=== PATIENT | male | born 1945 | race African-American/Black ===

== ENCOUNTER 2020-12-05 19:16 | Inpatient (IN) | payer MEDICARE, MEDICAID ==
[~2020-12-05] VITALS: Ht 177.8 cm; Wt 75.3 kg
[2020-12-05 20:43] LABS: BASOPHILS % 0.5 % (0.0-2.0); EOSINOPHILS % 4.6 % (0.0-5.0); HEMATOCRIT. 43.3 % (42.0-52.0); HEMOGLOBIN. 14.6 g/dL (14.0-18.0); LYMPHOCYTES % 19.2 % (20.0-50.0); MEAN CORPUSCULAR HEMOGLOBIN 33.1 pg (28.0-32.0); MEAN CORPUSCULAR VOLUME 98.2 fL (80.0-94.0); MEAN PLATELET VOLUME 9.6 fl (7.4-10.4); MONOCYTES % 13.4 % (2.0-8.0); NEUTROPHILS % 62.3 % (40.0-76.0); PLATELET 95 x1000/uL (130-400); RED BLOOD CELL COUNT 4.41 mill/uL (4.7-6.1); RED CELL DISTRIBUTION WIDTH 16.2 % (11.6-14.6)
[2020-12-05 20:49] LABS: CHLORIDE 101 mEq/L (98-107)
[2020-12-05] MEDS ORDERED: FUROSEMIDE 40MG/4ML VIAL IVP ONE (21:45)
[2020-12-05] MEDS ORDERED: ONDANSETRON HCL 4MG/2ML INJ IV PRN (23:30)
[2020-12-06] VITALS (7 sets, daily range): BP systolic 121–142; BP diastolic 68–78
[2020-12-06 00:42] LABS: HEPATITIS B SURFACE ANTIGEN NEGATIVE
[2020-12-06] MEDS: FUROSEMIDE 40MG/4ML VIAL IVP SCH ×3 (01:01→16:51)
[2020-12-06 01:12] LABS: HEPATITIS A AB IGM NEGATIVE (NEGATIVE)
[2020-12-06] MEDS: ACETAMINOPHEN 325MG TABLET PO PRN (02:16)
[2020-12-06 02:27] LABS: *AMPHETAMINES SCREEN URINE NEGATIVE (NEGATIVE); *BARBITURATES SCREEN URINE NEGATIVE (NEGATIVE); *BENZODIAZEPINES SCREEN URINE NEGATIVE (NEGATIVE); *COCAINE SCREEN URINE NEGATIVE (NEGATIVE); CANNABINOID URINE SCREEN NEGATIVE (NEGATIVE); PHENCYCLIDINE URINE SCREEN NEGATIVE (NEGATIVE)
[2020-12-06 02:28] LABS: METHADONE URINE SCREEN NEGATIVE (NEGATIVE); OPIATES URINE SCREEN NEGATIVE (NEGATIVE)
[2020-12-06] MEDS: HYDROCODONE/ACETAMINOPHEN 10/325MG TABLET PO PRN ×3 (06:50→23:59)
[2020-12-06] MEDS ORDERED: PERMETHRIN 5% CREAM 60GM TOP NR (12:45)
[2020-12-06] MEDS ORDERED: PIPERONYL/PYRETHRINS (RID)120 ML SHAMPOO TOP NR ×2 (21:00)
[2020-12-06] MEDS: LEVETIRACETAM 500MG TABLET PO SCH (21:42)
[2020-12-07] VITALS (12 sets, daily range): BP systolic 105–139; BP diastolic 60–101
[2020-12-07] MEDS: LEVETIRACETAM 500MG TABLET PO SCH ×2 (09:02→20:32)
[2020-12-07] MEDS: HYDROCODONE/ACETAMINOPHEN 10/325MG TABLET PO PRN (09:03)
[2020-12-07] MEDS: FUROSEMIDE 40MG/4ML VIAL IVP SCH ×2 (09:24→17:14)
[2020-12-07 10:09] LABS: BASOPHILS % 0.4 % (0.0-2.0); EOSINOPHILS % 3.1 % (0.0-5.0); HEMATOCRIT. 39.4 % (42.0-52.0); HEMOGLOBIN. 13.3 g/dL (14.0-18.0); LYMPHOCYTES % 14.7 % (20.0-50.0); MEAN CORPUSCULAR HEMOGLOBIN 32.7 pg (28.0-32.0); MEAN CORPUSCULAR VOLUME 96.6 fL (80.0-94.0); MEAN PLATELET VOLUME 9.4 fl (7.4-10.4); MONOCYTES % 12.1 % (2.0-8.0); NEUTROPHILS % 69.7 % (40.0-76.0); PLATELET 60 x1000/uL (130-400); RED BLOOD CELL COUNT 4.08 mill/uL (4.7-6.1); RED CELL DISTRIBUTION WIDTH 15.7 % (11.6-14.6)
[2020-12-07 10:26] LABS: CHLORIDE 96 mEq/L (98-107)
[2020-12-07] MEDS ORDERED: POTASSIUM CHLORIDE 20MEQ TABLET SR PO NR (10:45)
[2020-12-07] MEDS ORDERED: PIPERONYL/PYRETHRINS (RID)120 ML SHAMPOO TOP NR (12:00)
[2020-12-07] MEDS ORDERED: POTASSIUM CHLORIDE INJ 40 MEQ in DEXT 5% WATER 250 ML IV NR (13:00)
[2020-12-07] MEDS ORDERED: MAGNESIUM 2 G PREMIX 50 ML IV NR ×2 (16:00→18:00)
[2020-12-07] MEDS: ASPIRIN 81MG EC TABLET PO SCH (17:14)
[2020-12-08] VITALS (13 sets, daily range): BP systolic 91–149; BP diastolic 45–85
[2020-12-08] MEDS: HYDROCODONE/ACETAMINOPHEN 10/325MG TABLET PO PRN ×2 (05:56→17:30)
[2020-12-08 07:04] LABS: EOSINOPHILS % 4.4 % (0.0-5.0); HEMATOCRIT. 39.1 % (42.0-52.0); HEMOGLOBIN. 13.5 g/dL (14.0-18.0); LYMPHOCYTES % 19.3 % (20.0-50.0); MEAN CORPUSCULAR HEMOGLOBIN 33.5 pg (28.0-32.0); MEAN CORPUSCULAR VOLUME 96.8 fL (80.0-94.0); MEAN PLATELET VOLUME 10.2 fl (7.4-10.4); NEUTROPHILS % 61.3 % (40.0-76.0); PLATELET 57 x1000/uL (130-400); RED BLOOD CELL COUNT 4.04 mill/uL (4.7-6.1); RED CELL DISTRIBUTION WIDTH 15.7 % (11.6-14.6)
[2020-12-08 07:37] LABS: CHLORIDE 96 mEq/L (98-107)
[2020-12-08] MEDS: POTASSIUM CHLORIDE 20MEQ TABLET SR PO SCH (08:06)
[2020-12-08] MEDS: FUROSEMIDE 40MG/4ML VIAL IVP SCH ×2 (08:06→17:21)
[2020-12-08] MEDS: ASPIRIN 81MG EC TABLET PO SCH (08:06)
[2020-12-08] MEDS: LEVETIRACETAM 500MG TABLET PO SCH ×2 (08:06→20:31)
[2020-12-08] MEDS ORDERED: ENOXAPARIN 40MG/0.4ML SYR SUBCUT SCH (09:00)
[2020-12-08] MEDS ORDERED: POTASSIUM CHLORIDE 20MEQ/PACKET PO NR ×2 (09:30→15:00)
[2020-12-08] MEDS ORDERED: MAGNESIUM 2 G PREMIX 50 ML IV NR (10:30)
[2020-12-09 01:59] VITALS: BP 103/74
[2020-12-09 04:00] VITALS: BP 125/82
[2020-12-09 05:59] VITALS: BP 92/55
[2020-12-09 08:01] VITALS: BP 136/89
[2020-12-09 08:37] LABS: BASOPHILS % 0.8 % (0.0-2.0); EOSINOPHILS % 5.3 % (0.0-5.0); HEMATOCRIT. 42.4 % (42.0-52.0); HEMOGLOBIN. 14.5 g/dL (14.0-18.0); LYMPHOCYTES % 16.2 % (20.0-50.0); MEAN CORPUSCULAR HEMOGLOBIN 33.3 pg (28.0-32.0); MEAN CORPUSCULAR VOLUME 97.7 fL (80.0-94.0); MEAN PLATELET VOLUME 10.7 fl (7.4-10.4); MONOCYTES % 12.8 % (2.0-8.0); NEUTROPHILS % 64.9 % (40.0-76.0); PLATELET 66 x1000/uL (130-400); RED BLOOD CELL COUNT 4.34 mill/uL (4.7-6.1); RED CELL DISTRIBUTION WIDTH 16.3 % (11.6-14.6)
[2020-12-09 08:59] LABS: CHLORIDE 99 mEq/L (98-107)
[2020-12-09] MEDS: FUROSEMIDE 40MG/4ML VIAL IVP SCH ×2 (09:29→16:24)
[2020-12-09] MEDS: LEVETIRACETAM 500MG TABLET PO SCH ×2 (09:30→20:35)
[2020-12-09] MEDS: HYDROCODONE/ACETAMINOPHEN 10/325MG TABLET PO PRN (09:32)
[2020-12-09] MEDS: POTASSIUM CHLORIDE 20MEQ TABLET SR PO SCH (09:35)
[2020-12-09] MEDS ORDERED: IOHEXOL-350 100 ML BOTTLE ONE (09:41)
[2020-12-09 10:45] VITALS: BP 110/70
[2020-12-09 20:00] VITALS: BP 108/69
[2020-12-09] MEDS: AMLODIPINE 5MG TABLET PO SCH (20:35)
[2020-12-10] VITALS (15 sets, daily range): BP systolic 78–147; BP diastolic 23–78
[2020-12-10] MEDS: POTASSIUM CHLORIDE 20MEQ TABLET SR PO SCH ×2 (08:17→17:23)
[2020-12-10] MEDS: FUROSEMIDE 40MG/4ML VIAL IVP SCH ×2 (08:18→17:23)
[2020-12-10] MEDS: LEVETIRACETAM 500MG TABLET PO SCH ×2 (08:18→20:40)
[2020-12-10] MEDS: AMLODIPINE 5MG TABLET PO SCH ×2 (08:18→21:00)
[2020-12-10 08:28] LABS: HEMATOCRIT. 41.8 % (42.0-52.0); HEMOGLOBIN. 14.3 g/dL (14.0-18.0); MEAN CORPUSCULAR HEMOGLOBIN 33.5 pg (28.0-32.0); MEAN CORPUSCULAR VOLUME 97.7 fL (80.0-94.0); MEAN PLATELET VOLUME 10.4 fl (7.4-10.4); PLATELET 75 x1000/uL (130-400); RED BLOOD CELL COUNT 4.28 mill/uL (4.7-6.1); RED CELL DISTRIBUTION WIDTH 16.2 % (11.6-14.6)
[2020-12-10 08:33] LABS: CHLORIDE 98 mEq/L (98-107)
[2020-12-10 14:17] LABS: PLATELET ESTIMATE DECREASED
[2020-12-10] MEDS: HYDROCODONE/ACETAMINOPHEN 10/325MG TABLET PO PRN (17:46)
[2020-12-10] MEDS: ACETAMINOPHEN 325MG TABLET PO PRN (20:41)
[2020-12-11] VITALS (9 sets, daily range): BP systolic 94–122; BP diastolic 48–99
[2020-12-11 06:55] LABS: HEMATOCRIT. 43.6 % (42.0-52.0); HEMOGLOBIN. 14.9 g/dL (14.0-18.0); MEAN CORPUSCULAR HEMOGLOBIN 33.5 pg (28.0-32.0); MEAN CORPUSCULAR VOLUME 98.2 fL (80.0-94.0); MEAN PLATELET VOLUME 9.8 fl (7.4-10.4); PLATELET 84 x1000/uL (130-400); RED BLOOD CELL COUNT 4.43 mill/uL (4.7-6.1); RED CELL DISTRIBUTION WIDTH 16.1 % (11.6-14.6)
[2020-12-11 08:25] LABS: CHLORIDE 101 mEq/L (98-107)
[2020-12-11] MEDS: FUROSEMIDE 40MG/4ML VIAL IVP SCH ×2 (08:41→17:20)
[2020-12-11] MEDS: POTASSIUM CHLORIDE 20MEQ TABLET SR PO SCH ×2 (08:41→17:20)
[2020-12-11] MEDS: AMLODIPINE 5MG TABLET PO SCH ×2 (08:42→20:29)
[2020-12-11] MEDS: LEVETIRACETAM 500MG TABLET PO SCH ×2 (08:42→20:28)
[2020-12-11] MEDS ORDERED: POTASSIUM CHLORIDE 20MEQ TABLET SR PO SCH (08:45)
[2020-12-11 18:47] LABS: PLATELET ESTIMATE DECREASED
[2020-12-11] MEDS ORDERED: PERMETHRIN 5% CREAM 60GM TOP NR (20:00)
[2020-12-12] VITALS (13 sets, daily range): BP systolic 100–129; BP diastolic 64–79
[2020-12-12 06:11] LABS: HEMATOCRIT. 43.2 % (42.0-52.0); HEMOGLOBIN. 14.7 g/dL (14.0-18.0); MEAN CORPUSCULAR HEMOGLOBIN 33.5 pg (28.0-32.0); MEAN CORPUSCULAR VOLUME 98.2 fL (80.0-94.0); MEAN PLATELET VOLUME 10.6 fl (7.4-10.4); PLATELET 98 x1000/uL (130-400); RED CELL DISTRIBUTION WIDTH 16.2 % (11.6-14.6)
[2020-12-12 07:15] LABS: CHLORIDE 104 mEq/L (98-107)
[2020-12-12] MEDS: FUROSEMIDE 40MG/4ML VIAL IVP SCH ×2 (09:00→09:23)
[2020-12-12] MEDS: LEVETIRACETAM 500MG TABLET PO SCH ×2 (09:22→20:05)
[2020-12-12] MEDS: POTASSIUM CHLORIDE 20MEQ TABLET SR PO SCH ×2 (09:23→18:06)
[2020-12-12] MEDS: AMLODIPINE 5MG TABLET PO SCH ×2 (09:23→22:48)
[2020-12-12 12:15] LABS: PLATELET ESTIMATE SLIGHTLY DECREASED
[2020-12-12] MEDS: FUROSEMIDE 40MG TABLET PO SCH (20:05)
[2020-12-13] VITALS (7 sets, daily range): BP systolic 61–124; BP diastolic 38–79
[2020-12-13] MEDS: FUROSEMIDE 40MG TABLET PO SCH ×2 (08:19→21:32)
[2020-12-13] MEDS: AMLODIPINE 5MG TABLET PO SCH ×2 (08:19→21:00)
[2020-12-13] MEDS: LEVETIRACETAM 500MG TABLET PO SCH ×2 (08:19→21:32)
[2020-12-13] MEDS: POTASSIUM CHLORIDE 20MEQ TABLET SR PO SCH ×2 (08:19→17:15)
[2020-12-14] VITALS: BP 97/63
[2020-12-14 04:00] VITALS: BP 109/64
[2020-12-14 08:00] VITALS: BP 107/71
[2020-12-14] MEDS: AMLODIPINE 5MG TABLET PO SCH ×2 (09:00→10:51)
[2020-12-14] MEDS: FUROSEMIDE 40MG TABLET PO SCH ×2 (09:00→21:00)
[2020-12-14] MEDS: POTASSIUM CHLORIDE 20MEQ TABLET SR PO SCH ×2 (09:00→18:25)
[2020-12-14] MEDS: LEVETIRACETAM 500MG TABLET PO SCH ×2 (09:00→21:14)
[2020-12-14 12:00] VITALS: BP 105/62
[2020-12-14 15:44] LABS: HEMATOCRIT. 41.3 % (42.0-52.0); HEMOGLOBIN. 13.9 g/dL (14.0-18.0); MEAN CORPUSCULAR HEMOGLOBIN 33.4 pg (28.0-32.0); MEAN CORPUSCULAR VOLUME 99.6 fL (80.0-94.0); MEAN PLATELET VOLUME 10.7 fl (7.4-10.4); PLATELET 141 x1000/uL (130-400); RED BLOOD CELL COUNT 4.15 mill/uL (4.7-6.1)
[2020-12-14 16:00] VITALS: BP 107/63
[2020-12-14 16:02] LABS: CHLORIDE 107 mEq/L (98-107)
[2020-12-14] MEDS: ACETAMINOPHEN 325MG TABLET PO PRN (16:05)
[2020-12-14 20:00] VITALS: BP 93/64
[2020-12-14 23:09] LABS: PLATELET ESTIMATE NORMAL
[2020-12-15] VITALS: BP 110/72
[2020-12-15 04:00] VITALS: BP 111/67
[2020-12-15 08:00] VITALS: BP 118/78
[2020-12-15] MEDS: LEVETIRACETAM 500MG TABLET PO SCH ×2 (09:33→22:24)
[2020-12-15] MEDS: ACETAMINOPHEN 325MG TABLET PO PRN (09:34)
[2020-12-15] MEDS: AMLODIPINE 5MG TABLET PO SCH ×2 (09:34→21:00)
[2020-12-15] MEDS: POTASSIUM CHLORIDE 20MEQ TABLET SR PO SCH ×2 (09:37→16:42)
[2020-12-15] MEDS: FUROSEMIDE 40MG TABLET PO SCH ×2 (09:37→22:24)
[2020-12-15 12:00] VITALS: BP 122/74
[2020-12-15 16:00] VITALS: BP 88/64
[2020-12-15 20:00] VITALS: BP 115/74
[2020-12-16] VITALS: BP 110/63
[2020-12-16 04:00] VITALS: BP 112/65
[2020-12-16 08:00] VITALS: BP 120/74
[2020-12-16] MEDS: POTASSIUM CHLORIDE 20MEQ TABLET SR PO SCH ×3 (09:00→16:48)
[2020-12-16] MEDS: FUROSEMIDE 40MG TABLET PO SCH ×3 (09:00→23:10)
[2020-12-16] MEDS: LEVETIRACETAM 500MG TABLET PO SCH ×2 (10:32→23:10)
[2020-12-16] MEDS: AMLODIPINE 5MG TABLET PO SCH ×2 (10:32→23:10)
[2020-12-16 12:00] VITALS: BP 118/70
[2020-12-16 16:00] VITALS: BP 106/70
[2020-12-16 20:00] VITALS: BP 114/72
[2020-12-16] MEDS: ACETAMINOPHEN 325MG TABLET PO PRN (23:10)
[2020-12-17] VITALS: BP 112/70
[2020-12-17 04:00] VITALS: BP 128/67
[2020-12-17 08:00] VITALS: BP 111/65
[2020-12-17] MEDS: LEVETIRACETAM 500MG TABLET PO SCH ×2 (08:56→20:26)
[2020-12-17] MEDS: POTASSIUM CHLORIDE 20MEQ TABLET SR PO SCH ×2 (08:57→17:42)
[2020-12-17] MEDS: FUROSEMIDE 40MG TABLET PO SCH ×3 (08:57→20:36)
[2020-12-17] MEDS: AMLODIPINE 5MG TABLET PO SCH ×2 (09:02→20:27)
[2020-12-17] MEDS: ACETAMINOPHEN 325MG TABLET PO PRN ×2 (09:34→17:42)
[2020-12-17 12:00] VITALS: BP 93/61
[2020-12-17 16:00] VITALS: BP 106/63
[2020-12-17 20:00] VITALS: BP 96/53
[2020-12-18] VITALS: BP 102/64
[2020-12-18 04:00] VITALS: BP 111/70
[2020-12-18 08:00] VITALS: BP 104/74
[2020-12-18] MEDS: LEVETIRACETAM 500MG TABLET PO SCH ×2 (08:47→21:24)
[2020-12-18] MEDS: FUROSEMIDE 40MG TABLET PO SCH ×2 (08:47→21:24)
[2020-12-18] MEDS: POTASSIUM CHLORIDE 20MEQ TABLET SR PO SCH ×2 (08:47→16:40)
[2020-12-18] MEDS: AMLODIPINE 5MG TABLET PO SCH ×3 (08:48→21:24)
[2020-12-18 16:00] VITALS: BP 109/72
[2020-12-18] MEDS: ACETAMINOPHEN 325MG TABLET PO PRN (16:41)
[2020-12-18 20:00] VITALS: BP 104/62
[2020-12-19] VITALS: BP 104/71
[2020-12-19 04:00] VITALS: BP 125/78
[2020-12-19] MEDS: ACETAMINOPHEN 325MG TABLET PO PRN ×3 (05:32→21:36)
[2020-12-19 08:00] VITALS: BP 130/73
[2020-12-19] MEDS: FUROSEMIDE 40MG TABLET PO SCH ×3 (09:00→21:00)
[2020-12-19] MEDS: AMLODIPINE 5MG TABLET PO SCH ×3 (09:00→21:00)
[2020-12-19] MEDS: LEVETIRACETAM 500MG TABLET PO SCH ×3 (09:00→21:36)
[2020-12-19] MEDS: POTASSIUM CHLORIDE 20MEQ TABLET SR PO SCH ×3 (09:00→17:03)
[2020-12-19 12:00] VITALS: BP 110/68
[2020-12-19 16:00] VITALS: BP 101/61
[2020-12-19 20:00] VITALS: BP 105/66
[2020-12-20] VITALS: BP 161/94
[2020-12-20] MEDS ORDERED: CLONIDINE 0.1MG TABLET PO PRN (01:00)
[2020-12-20 04:00] VITALS: BP 98/55
[2020-12-20 08:00] VITALS: BP 136/83
[2020-12-20] MEDS: POTASSIUM CHLORIDE 20MEQ TABLET SR PO SCH ×2 (09:00→17:00)
[2020-12-20] MEDS: LEVETIRACETAM 500MG TABLET PO SCH ×2 (09:00→21:18)
[2020-12-20] MEDS: FUROSEMIDE 40MG TABLET PO SCH ×2 (09:00→21:18)
[2020-12-20] MEDS: AMLODIPINE 5MG TABLET PO SCH ×2 (09:00→21:17)
[2020-12-20 12:00] VITALS: BP 85/57
[2020-12-20] MEDS: ACETAMINOPHEN 325MG TABLET PO PRN ×2 (12:03→21:18)
[2020-12-20 16:00] VITALS: BP 103/61
[2020-12-20 20:00] VITALS: BP 121/66
[2020-12-21] VITALS (7 sets, daily range): BP systolic 107–129; BP diastolic 63–74
[2020-12-21] MEDS: FUROSEMIDE 40MG TABLET PO SCH ×2 (09:00→20:05)
[2020-12-21] MEDS: AMLODIPINE 5MG TABLET PO SCH ×2 (09:00→20:05)
[2020-12-21] MEDS: LEVETIRACETAM 500MG TABLET PO SCH ×2 (09:00→20:04)
[2020-12-21] MEDS: ACETAMINOPHEN 325MG TABLET PO PRN ×2 (10:21→20:05)
[2020-12-21] MEDS ORDERED: FURO40TA5 PO (11:40)
[2020-12-21] MEDS ORDERED: KEPP500 PO (11:40)
[2020-12-21] MEDS ORDERED: AMLO5TAB88 PO (11:40)
[2020-12-21 13:50] LABS: CHLORIDE 108 mEq/L (98-107)
[2020-12-21] MEDS ORDERED: POTA20TA82 MT (18:39)
[2020-12-21] MEDS ORDERED: HYDROCODONE/ACETAMINOPHEN 5/325MG TABLET PO PRN (20:00)
[2020-12-22] VITALS: BP 131/79
[2020-12-22 04:00] VITALS: BP 122/73
[2020-12-22] MEDS: ACETAMINOPHEN 325MG TABLET PO PRN ×2 (05:38→10:29)
[2020-12-22] MEDS: FUROSEMIDE 40MG TABLET PO SCH (10:29)
[2020-12-22] MEDS: AMLODIPINE 5MG TABLET PO SCH (10:29)
[2020-12-22] MEDS: LEVETIRACETAM 500MG TABLET PO SCH (10:29)
[2020-12-22 13:28] VITALS: BP 124/86
[2020-12-22 15:27] VITALS: BP 124/86
== END 2020-12-22 16:00 | disposition home or self-care (01) | DRG 194 ==
LOC: ER 19:16 → 3WST 22:24 → EDBD 22:24 → ENRESERV 12-06 07:33 → 6EST 12-06 07:51
PROVIDERS: ADMIT Internal Medicine; ATTEND Internal Medicine
PROC: 0HBRXZZ Excision of Toe Nail, External Approach (ICD-10-PCS; principal; 2020-12-07)
PROC: 0HBRXZZ Excision of Toe Nail, External Approach (ICD-10-PCS; 2020-12-07)
PROC: 0HBRXZZ Excision of Toe Nail, External Approach (ICD-10-PCS; 2020-12-07)
PROC: 0HBRXZZ Excision of Toe Nail, External Approach (ICD-10-PCS; 2020-12-07)
PROC: 0HBRXZZ Excision of Toe Nail, External Approach (ICD-10-PCS; 2020-12-07)
PROC: 0HBRXZZ Excision of Toe Nail, External Approach (ICD-10-PCS; 2020-12-07)
PROC: 0HBRXZZ Excision of Toe Nail, External Approach (ICD-10-PCS; 2020-12-07)
PROC: 0HBRXZZ Excision of Toe Nail, External Approach (ICD-10-PCS; 2020-12-07)
PROC: 0HBRXZZ Excision of Toe Nail, External Approach (ICD-10-PCS; 2020-12-07)
PROC: 0HBRXZZ Excision of Toe Nail, External Approach (ICD-10-PCS; 2020-12-07)
DX: I11.0 Hypertensive heart disease with heart failure (principal); I50.33 Acute on chronic diastolic (congestive) heart failure; E44.0 Moderate protein-calorie malnutrition; B19.20 Unspecified viral hepatitis C without hepatic coma; B85.2 Pediculosis, unspecified; E78.5 Hyperlipidemia, unspecified; E83.51 Hypocalcemia; G40.909 Epilepsy, unspecified, not intractable, without status epilepticus; I25.10 Atherosclerotic heart disease of native coronary artery without angina pectoris; J44.9 Chronic obstructive pulmonary disease, unspecified; K76.0 Fatty (change of) liver, not elsewhere classified; B35.1 Tinea unguium; E83.42 Hypomagnesemia; E87.6 Hypokalemia; I74.10 Embolism and thrombosis of unspecified parts of aorta; D69.6 Thrombocytopenia, unspecified; I72.2 Aneurysm of renal artery; Z60.2 Problems related to living alone; I87.8 Other specified disorders of veins; S90.422A Blister (nonthermal), left great toe, initial encounter; X58.XXXA Exposure to other specified factors, initial encounter; S90.31XA Contusion of right foot, initial encounter; E11.51 Type 2 diabetes mellitus with diabetic peripheral angiopathy without gangrene; L60.2 Onychogryphosis; I71.4 Abdominal aortic aneurysm, without rupture; I49.3 Ventricular premature depolarization; R00.0 Tachycardia, unspecified; I95.9 Hypotension, unspecified; Z20.822 Contact with and (suspected) exposure to COVID-19; I49.1 Atrial premature depolarization; Z95.1 Presence of aortocoronary bypass graft; Z86.718 Personal history of other venous thrombosis and embolism; Z86.11 Personal history of tuberculosis; Z79.01 Long term (current) use of anticoagulants; Z59.0 Homelessness; Y93.89 Activity, other specified; Y92.89 Other specified places as the place of occurrence of the external cause; Y99.8 Other external cause status; Z71.6 Tobacco abuse counseling; Z68.23 Body mass index [BMI] 23.0-23.9, adult
CPT/HCPCS: 36415; 71045; 75635; 76700; 80048; 80053; 80061; 80305; 83036; 83735; 83880; 84443; 84484; 85025; 86705; 86709; 86803; 87340; 93005; 93306; 93923; 97116; 97162; 97164; 97166; 97530; 97535; 99285; J1940; J3475; J3480; J7060; Q9967; U0003